=== PATIENT | male | born 1955 | race African-American/Black ===

== ENCOUNTER 2019-10-12 09:49 | Inpatient (IN) ==
[2019-10-12 10:23] LABS: Basophils # 0.1 10*3/uL (0.0-0.2); Basophils % 0.4 % (0.0-0.8); Hematocrit 46.7 VOL% (42.0-52.0); Hemoglobin 14.7 GM/DL (14.0-18.0); Immature Granulocytes % 0.4 %; Immature Granulocytes Absolute 0.05 #; Lymphocytes # 1.7 10*3/uL (1.4-4.0); Lymphocytes % 13.5 % (21.2-54.2); Mean Corpuscular HGB Conc 31.5 GM/DL (32-36); Mean Corpuscular Volume 89.5 FL (87-102); Mean Platelet Volume 9.9 FL (9.6-12.0); Monocytes % 3.8 % (1.7-12.7); Neutrophils % 81.9 % (38.7-73.9); Platelet Count 248 T/CUMM (130-400); Red Blood Count 5.22 MC/CUMM (3.8-5.5); Red Cell Distribution Width 17.7 % (9.3-17.3); White Blood Count 12.5 T/CUMM (4-12)
[2019-10-12 10:41] LABS: Albumin 3.9 G/DL (3.4-5.0); Bilirubin,Total 0.9 MG/DL (0.2-1.0); Calcium 9.5 MG/DL (8.5-10.1); Osmolality,Calculated 274.7 MOS/KG (273-304); Total Protein 7.3 G/DL (6.4-8.3)
[2019-10-12] MEDS ORDERED: PROMETHAZINE 25 MG/1 ML VIAL IM STA ×2 (11:56→14:30)
[2019-10-12] MEDS ORDERED: SODIUM CHLORIDE 0.9% 1,000 ML IV STA (11:56)
[2019-10-12] MEDS ORDERED: PANTOPRAZOLE 40 MG VIAL IV STA (11:57)
[2019-10-12] MEDS ORDERED: ONDANSETRON 4 MG/2 ML VIAL ONE (12:05)
[2019-10-12] MEDS ORDERED: ONDANSETRON 4 MG/2 ML VIAL IV STA (12:14)
[2019-10-12] MEDS ORDERED: hydrALAZINE 20 MG/1 ML VIAL IV STA (12:39)
[2019-10-12] MEDS ORDERED: hydrALAZINE 20 MG/1 ML VIAL ONE (12:42)
[2019-10-12 13:03] LABS: Apearance,Urine CLEAR (Clear); Bacteria,Urine Occasional /HPF (Few); Bilirubin,Urine Negative (Negative); Blood, Urine Negative (Negative); Glucose,Urine (UA) Negative (Negative); Ketones,Urine Negative (Negative); Mucus,Urine Occasional /LPF (Occasional); Nitrite,Urine Negative (Negative); Protein,Urine Negative; RBC,Urine 4 /HPF (0-4); Squamous Epithelial Cell,Urine Occasional /HPF (0-10); Urine Color Yellow (Yellow); Urine Specific Gravity > 1.060 (1.001-1.035); Urine Urobilinogen < 2.0 EU/DL (0.2-1.0); WBC,Urine 1 /HPF (0-6)
[2019-10-12] MEDS ORDERED: METOCLOPRAMIDE 10 MG/2 ML VIAL IV STA (13:20)
[2019-10-12] MEDS ORDERED: MORPHINE 4 MG/1 ML VIAL IV PRN (15:45)
[2019-10-12] MEDS ORDERED: POLYETHYLENE GLYCOL POWDER 17 GM PACK PO SCH (15:53)
[2019-10-12] MEDS ORDERED: POLYETHYLENE GLYCOL POWDER 17 GM PACK PO PRN (16:17)
[2019-10-12] MEDS: SODIUM CHLORIDE 0.9% 1,000 ML IV SCH (17:59)
[2019-10-12] MEDS: ONDANSETRON 4 MG/2 ML VIAL IV PRN (18:00)
[2019-10-12] MEDS: METOCLOPRAMIDE 10 MG/2 ML VIAL IV SCH (22:58)
[2019-10-13] MEDS: METOCLOPRAMIDE 10 MG/2 ML VIAL IV SCH ×3 (05:21→21:11)
[2019-10-13] MEDS: SODIUM CHLORIDE 0.9% 1,000 ML IV SCH ×3 (05:21→21:15)
[2019-10-13 05:48] LABS: Basophils % 0.4 % (0.0-0.8); Hematocrit 40.1 VOL% (42.0-52.0); Hemoglobin 13.1 GM/DL (14.0-18.0); Immature Granulocytes % 0.3 %; Immature Granulocytes Absolute 0.03 #; Lymphocytes # 2.2 10*3/uL (1.4-4.0); Lymphocytes % 20.3 % (21.2-54.2); Mean Corpuscular HGB Conc 32.7 GM/DL (32-36); Mean Platelet Volume 10.7 FL (9.6-12.0); Monocytes % 5.6 % (1.7-12.7); Neutrophils % 73.4 % (38.7-73.9); Platelet Count 208 T/CUMM (130-400); Red Blood Count 4.61 MC/CUMM (3.8-5.5); Red Cell Distribution Width 17.2 % (9.3-17.3)
[2019-10-13 06:16] LABS: Calcium 8.5 MG/DL (8.5-10.1); Osmolality,Calculated 274.5 MOS/KG (273-304)
[2019-10-13] MEDS: ONDANSETRON 4 MG/2 ML VIAL IV PRN ×2 (08:43→19:45)
[2019-10-13] MEDS ORDERED: PANTOPRAZOLE 40 MG VIAL IV SCH (09:00)
[2019-10-13] MEDS: PREGABALIN 75 MG CAPSULE PO SCH (21:10)
[2019-10-14 04:54] LABS: Basophils % 0.4 % (0.0-0.8); Eosinophils % 0.1 % (0.00-10.9); Hematocrit 40.5 VOL% (42.0-52.0); Hemoglobin 12.9 GM/DL (14.0-18.0); Immature Granulocytes % 0.4 %; Immature Granulocytes Absolute 0.03 #; Lymphocytes # 2.2 10*3/uL (1.4-4.0); Lymphocytes % 26.3 % (21.2-54.2); Mean Corpuscular HGB Conc 31.9 GM/DL (32-36); Mean Platelet Volume 9.7 FL (9.6-12.0); Monocytes % 5.1 % (1.7-12.7); Neutrophils % 67.7 % (38.7-73.9); Platelet Count 191 T/CUMM (130-400); Red Blood Count 4.55 MC/CUMM (3.8-5.5); White Blood Count 8.2 T/CUMM (4-12)
[2019-10-14 05:09] LABS: Osmolality,Calculated 278.3 MOS/KG (273-304)
[2019-10-14] MEDS: METOCLOPRAMIDE 10 MG/2 ML VIAL IV SCH (05:17)
[2019-10-14] MEDS: SODIUM CHLORIDE 0.9% 1,000 ML IV SCH ×2 (05:17→11:48)
[2019-10-14] MEDS ORDERED: TERBINAFINE 1% CREAM 12 GM TUBE TOP SCH (09:00)
[2019-10-14] MEDS ORDERED: PANTOPRAZOLE 40 MG TABLET PO SCH (09:00)
[2019-10-14] MEDS: PREGABALIN 75 MG CAPSULE PO SCH (09:10)
[2019-10-14] MEDS ORDERED: METOCLOPRAMIDE 5 MG TABLET PO SCH ×2 (11:30→16:30)
[2019-10-14 12:30] VITALS: BP 151/67
[2019-10-14 13:34] LABS: HIV Antigen/Antibody Result Nonreactive (Nonreactive)
== END 2019-10-14 14:53 | disposition home or self-care (01) | DRG 392 ==
LOC: N.ED 09:49 → N.EDINP 15:45 → N.5E 16:19
PROVIDERS: ADMIT Internal Medicine Geriatric Medicine; ATTEND Internal Medicine Geriatric Medicine

== ENCOUNTER 2021-01-10 21:51 | Observation (INO) ==
[2021-01-11] MEDS ORDERED: GLUCAGON 1 MG VIAL IM PRN (01:27)
[2021-01-11] MEDS ORDERED: MORPHINE 4 MG/1 ML VIAL IV PRN (01:27)
[2021-01-11] MEDS ORDERED: ONDANSETRON 4 MG/2 ML VIAL IV PRN (01:27)
[2021-01-11] MEDS ORDERED: DEXTROSE 50% 25 GM/50 ML VIAL IV PRN (01:27)
[2021-01-11 01:58] LABS: Hematocrit 41.4 VOL% (42.0-52.0); Hemoglobin 13.4 GM/DL (14.0-18.0)
[2021-01-11 06:45] LABS: Hematocrit 41.9 VOL% (42.0-52.0); Hemoglobin 13.6 GM/DL (14.0-18.0)
[2021-01-11 07:08] LABS: Albumin 3.1 G/DL (3.4-5.0); Calcium 8.6 MG/DL (8.5-10.1); Osmolality,Calculated 274.5 MOS/KG (273-304); Potassium 3.1 MMOL/L (3.5-5.1); Total Protein 6.1 G/DL (6.4-8.2)
[2021-01-11 07:16] LABS: Basophils # 0.1 10*3/uL (0.0-0.2); Basophils % 0.5 % (0.0-0.8); Eosinophils % 0.1 % (0.00-10.9); Hematocrit 42.5 VOL% (42.0-52.0); Hemoglobin 13.6 GM/DL (14.0-18.0); Immature Granulocytes % 0.2 %; Immature Granulocytes Absolute 0.03 #; Lymphocytes # 3.2 10*3/uL (1.4-4.0); Lymphocytes % 25.8 % (21.2-54.2); Mean Corpuscular Volume 87.4 FL (87-102); Mean Platelet Volume 9.7 FL (9.6-12.0); Monocytes % 5.2 % (1.7-12.7); Neutrophils % 68.2 % (38.7-73.9); Platelet Count 230 T/CUMM (130-400); Red Blood Count 4.86 MC/CUMM (3.8-5.5); Red Cell Distribution Width 16.7 % (9.3-17.3); White Blood Count 12.3 T/CUMM (4-12)
[2021-01-11] MEDS ORDERED: POTASSIUM CHLORIDE RIDER 10 MEQ/100 ML PREMIX IV PRN (07:22)
[2021-01-11] MEDS: POTASSIUM CHLORIDE INJ 40 MEQ in LACTATED RINGERS 1,000 ML IV SCH ×2 (08:50→22:23)
[2021-01-11] MEDS: PANTOPRAZOLE 40 MG VIAL IV SCH ×2 (08:51→21:05)
[2021-01-11 13:06] LABS: Hematocrit 41.3 VOL% (42.0-52.0); Hemoglobin 13.3 GM/DL (14.0-18.0)
[2021-01-11 19:20] LABS: Hematocrit 41.1 VOL% (42.0-52.0); Hemoglobin 13.7 GM/DL (14.0-18.0)
[2021-01-12 01:22] LABS: Hematocrit 40.2 VOL% (42.0-52.0); Hemoglobin 13.1 GM/DL (14.0-18.0)
[2021-01-12 05:16] LABS: Basophils % 0.4 % (0.0-0.8); Eosinophils % 0.1 % (0.00-10.9); Hematocrit 38.4 VOL% (42.0-52.0); Hemoglobin 12.7 GM/DL (14.0-18.0); Immature Granulocytes % 0.2 %; Immature Granulocytes Absolute 0.02 #; Lymphocytes # 2.7 10*3/uL (1.4-4.0); Lymphocytes % 28.8 % (21.2-54.2); Mean Corpuscular HGB Conc 33.1 GM/DL (32-36); Mean Corpuscular Volume 86.9 FL (87-102); Mean Platelet Volume 9.5 FL (9.6-12.0); Monocytes % 5.1 % (1.7-12.7); Neutrophils % 65.4 % (38.7-73.9); Platelet Count 220 T/CUMM (130-400); Red Blood Count 4.42 MC/CUMM (3.8-5.5); Red Cell Distribution Width 16.4 % (9.3-17.3); White Blood Count 9.5 T/CUMM (4-12)
[2021-01-12 05:50] LABS: Calcium 8.8 MG/DL (8.5-10.1); Osmolality,Calculated 271.7 MOS/KG (273-304); Potassium 3.5 MMOL/L (3.5-5.1)
[2021-01-12] MEDS: PANTOPRAZOLE 40 MG VIAL IV SCH (08:06)
[2021-01-12] MEDS ORDERED: LACTATED RINGERS 1,000 ML IV SCH (09:00)
[2021-01-12] MEDS ORDERED: LIDOCAINE 2% 5 ML VIAL ONE (11:23)
[2021-01-12] MEDS ORDERED: propofoL 200 MG/20 ML VIAL IV ONE (11:23)
[2021-01-12 12:07] VITALS: BP 145/70
== END 2021-01-12 17:36 | disposition home or self-care (01) ==
LOC: N.5E → SUATTDRO 01-11 01:04
PROVIDERS: ADMIT Internal Medicine; ATTEND Internal Medicine